=== PATIENT | female | born 1965 | race Caucasian/White ===

== ENCOUNTER 2017-05-20 09:15 | Emergency (ER) | payer SELFPAY ==
[~2017-05-20] VITALS: Ht 175.3 cm; Wt 60.0 kg
[2017-05-20 09:16] VITALS: BP 132/83; PULSE 98; RESP 20; TEMP 98.6; O2SAT 97
[2017-05-20 10:27] LABS: AUTOMATED NEUTROPHIL # 9.1 TH/MM3 (1.8-7.7); BASOPHIL % 0.3 % (0.0-2.0); EOSINOPHIL # 0.1 TH/MM3 (0-0.4); EOSINOPHIL % 0.6 % (0.0-4.0); HEMATOCRIT 49.5 % (35.0-46.0); HEMO FLAGS DIFF FINAL; LYMPH % 16.3 % (9.0-44.0); MEAN CELL VOLUME 96.2 FL (80.0-100.0); MEAN CORPUSCULAR HGB CONC 34.3 % (32.0-36.0); MONO % 9.7 % (0.0-8.0); NEUT % 73.1 % (16.0-70.0); PLATELET COUNT 406 TH/MM3 (150-450); RED BLOOD COUNT 5.14 MIL/MM3 (4.00-5.30); RED CELL DISTRIBUTION WIDTH 13.9 % (11.6-17.2); WHITE BLOOD COUNT 12.5 TH/MM3 (4.0-11.0)
[2017-05-20] MEDS ORDERED: LOPERAMIDE HCL 2 MG CAP PO ONE (10:30)
[2017-05-20] MEDS ORDERED: ONDANSETRON ODT 4 MG TAB PO ONE (10:30)
--- NOTE | 2017-05-20 10:40 | RADRPT ---
EXAM DATE/TIME: 05/20/2017 10:13 [place] COMPARISON: No previous studies available for comparison. INDICATIONS : Dizziness, weakness, nausea, vomiting, chest pressure. MEDICAL HISTORY : None. SURGICAL HISTORY : None. ENCOUNTER: Initial ACUITY: 2 days PAIN SCORE: 2/10 LOCATION: Bilateral chest FINDINGS: The heart is normal in size. There are COPD changes. There is moderate bronchiectasis in the lung bases. The osseous structures are intact. CONCLUSION: 1. Advanced COPD changes and bronchiectasis. Duglas Moss MD on May 20, 2017 at 10:38 Board Certified Radiologist. This report was verified electronically.
[2017-05-20 10:42] LABS: ANION GAP 8 MEQ/L (5-15); BICARBONATE 23.6 MEQ/L (21.0-32.0); BLOOD UREA NITROGEN 12 MG/DL (7-18); CHLORIDE 108 MEQ/L (98-107); GLOMERULAR FILTRATION RATE 61 ML/MIN (>89); POTASSIUM 3.8 MEQ/L (3.5-5.1); SODIUM (NA) 140 MEQ/L (136-145)
[2017-05-20 10:48] LABS: CREATINE KINASE 62 U/L (26-192)
--- NOTE | 2017-05-20 11:19 | PD ---
HPI Chief Complaint: Cardiac Complaint Time Seen by Provider: 10:29 Travel History International Travel<30 days: No Contact w/Intl Traveler<30days: No Traveled to known affect area: No History of Present Illness HPI 52 year-old woman presents emergent from complaining "I think that heatstroke". She reports working on the heat yesterday. Which came back inside she started to get nausea vomiting diarrhea and the shakes. She has no sick contacts. Not sure she ate anything bad. She is up all night with copious watery diarrhea and some vomiting. She has a history of COPD and arthritis. No other complaints. History Past Medical History Narrative Medical COPD Arthritis Social History Alcohol Use: No Tobacco Use: Yes (1.5 ppd) Allergies-Medications (Allergen,Severity, Reaction): Coded Allergies: *MDRO Multi-Drug Resistant Organism (Verified Adverse Reaction, Unknown, ) ESBL E.Coli (urine) - 06/2015, 09/2015 Reported Meds & Prescriptions Reported Meds & Active Scripts Active No Active Prescriptions or Reported Medications Review of Systems Except as stated in HPI: all other systems reviewed are Neg Physical Exam Narrative GENERAL: Well-appearing 52 year-old woman, no acute distress. SKIN: Focused skin assessment warm/dry. HEAD: Atraumatic. Normocephalic. EYES: Pupils equal and round. No scleral icterus. No injection or drainage. ENT: No nasal bleeding or discharge. Mucous membranes pink and moist. NECK: Trachea midline. No JVD. CARDIOVASCULAR: Regular rate and rhythm. No murmur appreciated. RESPIRATORY: No accessory muscle use. Clear to auscultation. Breath sounds equal bilaterally. GASTROINTESTINAL: Abdomen soft, non-tender, nondistended. Hepatic and splenic margins not palpable. MUSCULOSKELETAL: No obvious deformities. No clubbing. No cyanosis. No edema. NEUROLOGICAL: Awake and alert. No obvious cranial nerve deficits. Motor grossly within normal limits. Normal speech. PSYCHIATRIC: Appropriate mood and affect; insight and judgment normal. Data Data Last Documented VS Vital Signs Date Time Temp Pulse Resp B/P (MAP) Pulse Ox O2 Delivery O2 Flow Rate FiO2 05/20/17 10:10 18 Room Air 05/20/17 09:16 98.6 98 132/83 (99) 97 Orders Orders Electrocardiogram (05/20/17 09:30) Complete Blood Count With Diff (05/20/17 09:30) Basic Metabolic Panel (Bmp) (05/20/17 09:30) Ckmb (Isoenzyme) Profile (05/20/17 09:30) Troponin I (05/20/17 09:30) Chest, Single Ap (05/20/17 09:30) Ondansetron Odt (Zofran Odt) (05/20/17 10:30) Loperamide (Imodium) (05/20/17 10:30) Labs Laboratory Tests Test 05/20/17 10:00 White Blood Count 12.5 TH/MM3 Red Blood Count 5.14 MIL/MM3 Hemoglobin 17.0 GM/DL Hematocrit 49.5 % Mean Corpuscular Volume 96.2 FL Mean Corpuscular Hemoglobin 33.0 PG Mean Corpuscular Hemoglobin Concent 34.3 % Red Cell Distribution Width 13.9 % Platelet Count 406 TH/MM3 Mean Platelet Volume 7.5 FL Neutrophils (%) (Auto) 73.1 % Lymphocytes (%) (Auto) 16.3 % Monocytes (%) (Auto) 9.7 % Eosinophils (%) (Auto) 0.6 % Basophils (%) (Auto) 0.3 % Neutrophils # (Auto) 9.1 TH/MM3 Lymphocytes # (Auto) 2.0 TH/MM3 Monocytes # (Auto) 1.2 TH/MM3 Eosinophils # (Auto) 0.1 TH/MM3 Basophils # (Auto) 0.0 TH/MM3 CBC Comment DIFF FINAL Differential Comment Blood Urea Nitrogen 12 MG/DL Creatinine 0.96 MG/DL Random Glucose 90 MG/DL Calcium Level 9.7 MG/DL Sodium Level 140 MEQ/L Potassium Level 3.8 MEQ/L Chloride Level 108 MEQ/L Carbon Dioxide Level 23.6 MEQ/L Anion Gap 8 MEQ/L Estimat Glomerular Filtration Rate 61 ML/MIN Total Creatine Kinase 62 U/L Troponin I LESS THAN 0.02 NG/ML MDM Medical Decision Making Medical Screen Exam Complete: Yes Emergency Medical Condition: Yes Interpretation(s) LABS: CBC remarkable for mildly concentrated hemoglobin. CMP is unremarkable troponins negative my review of ekg: normal sinus rhythm at a rate of 74, normal axis, normal intervals, no acute ischemia. Chest x-ray: Didn't COPD and bronchiectasis. Differential Diagnosis Gastroenteritis, heat stroke, rhabdomyolysis, exhaustion, other Narrative Course Medical decision making Is a 52 year-old woman presents emergency Department with heat exhaustion and probable gastroenteritis. She does not appear dehydrated. Her labs are unremarkable. Recommend supportive treatment. Diagnosis Primary Impression: Gastroenteritis Additional Instructions: Take medications as prescribed. Drink plenty fluids stay well-hydrated. Return to the emergency department for any new or worsening symptoms. Med/Other Pt SpecificInfo: No Change to Meds Scripts No Active Prescriptions or Reported Meds Disposition: 01 DISCHARGE HOME Condition: Stable Chuy Diane MD May 20, 2017 11:19
[2017-05-20] MEDS ORDERED: LOPE2CAP PO (11:47)
[2017-05-20] MEDS ORDERED: ONDA4TAB7 SL (11:47)
[2017-05-20 12:10] VITALS: BP 126/78
--- NOTE | 2017-05-20 21:05 | EKG ---
Date Performed: 05/20/2017 Time Performed: 09:51:36 PTAGE: 52 years EKG: Sinus rhythm POSSIBLE LEFT ATRIAL ENLARGEMENT BORDERLINE ECG NO PREVIOUS TRACING DOCTOR: Dyan Felipe Interpretating Date/Time 05/20/2017 21:03:28
== END 2017-05-20 12:10 | disposition home or self-care (01) ==
LOC: NEPE 09:15
DX: K52.9 Noninfective gastroenteritis and colitis, unspecified (principal); F17.200 Nicotine dependence, unspecified, uncomplicated; J44.9 Chronic obstructive pulmonary disease, unspecified; R07.89 Other chest pain
CPT/HCPCS: 71010; 80048; 82550; 84484; 85025; 93005; 99285